=== PATIENT | female | born 1970 | race Caucasian/White ===

== ENCOUNTER 2018-10-01 14:54 | Emergency (ER) | payer BC, OTHER ==
[2018-10-01 15:30] LABS: Absolute Lymphocytes (CBC) 1.4 K/uL (0.7-4.9); Absolute Monocytes 0.5 K/uL (0.1-1.3); Absolute Neutrophil 3.9 K/uL (1.8-8.0); Basophils % 0.8 % (0-1.3); Eosinophils % 2.3 % (0-4.4); Hematocrit 32.3 % (36.0-45.0); Lymphocytes % 23.7 % (15.3-44.8); Monocytes % 7.9 % (3.3-12.3); RBC Red Blood Cell Count 4.36 M/uL (3.86-4.86)
[2018-10-01] MEDS ORDERED: ONDANSETRON 4 MG/2 ML VIAL ONE (15:37)
[2018-10-01] MEDS ORDERED: MORPHINE 4 MG/ML SYR ONE (15:37)
[2018-10-01 15:58] LABS: ALT/SGPT 26 U/L (12-78); AST/SGOT 30 U/L (15-37); Albumin 3.9 g/dL (3.4-5.0); Alkaline Phosphatase 69 U/L (45-117); BUN Blood Urea Nitrogen 7 mg/dL (7-18); Bicarbonate 27 mmol/L (21-32); Bilirubin Direct < 0.1 mg/dL (0-0.2); Bilirubin Total 0.3 mg/dL (0.2-1.0); Glucose Level 94 mg/dL (74-106); Lipase 110 U/L (73-393); Potassium 4.3 mmol/L (3.5-5.1); Protein, Total 7.4 g/dL (6.4-8.2); Sodium Level 137 mmol/L (136-145)
[2018-10-01 16:01] LABS: Urine Blood NEGATIVE (NEG); Urine Glucose NEGATIVE (NEG); Urine Protein NEGATIVE (NEG); Urine Specific Gravity 1.015 (1.005-1.030)
--- NOTE | 2018-10-01 16:32 | RAD REPORT ---
EXAM DESCRIPTION: CT - Abdomen Pelvis W Contrast - 10/01/2018 4:13 pm CLINICAL HISTORY: Abdominal pain with nausea. COMPARISON: none. TECHNIQUE: Computed axial tomography of the abdomen pelvis was obtained. 100 cc Isovue-300 was admin istered intravenously. Oral contrast was not requested which limits evaluation of bowel. All CT scans are performed using dose optimization technique as appropriate and may include automated exposure control or mA/KV adjustment according to patient size. FINDINGS: The liver, spleen, pancreas, adrenal and kidneys appear unremarkable. Small right renal cy st There is no evidence of diverticulitis. The appendix appears normal A 25 millimeter left ovarian cyst with small amount of free fluid IMPRESSION: 25 millimeter left ovarian cyst with small amount of free fluid
--- NOTE | 2018-10-01 17:09 | EDPHYS ---
Physician Documentation [facility] Name: Valarie Agrawal Age: 48 yrs Sex: Female : 1970 Arrival Date: 10/01/2018 Time: 14:56 Bed 30 Private MD: Juan Perez ED Physician Yemi Severino HPI: 10/01 15:49 This 48 yrs old Female presents to ER via Ambulatory with complaints of jr8 Abdominal Pain, Back Pain. 15:49 The patient presents with abdominal pain that is diffuse. Onset: The symptoms/episode jr8 began/occurred acutely, yesterday. The symptoms radiate to back. Associated signs and symptoms: Pertinent positives: diarrhea, nausea. The symptoms are described as sharp. Modifying factors: The symptoms are alleviated by nothing, the symptoms are aggravated by nothing. Severity of pain: At its worst the pain was moderate in the emergency department the pain is unchanged. The patient has not experienced similar symptoms in the past. The patient has not recently seen a physician. Stated that she started with back pain that went to lower abdomen. Noticed that she urinated out what she thought was a stone last night. Back pain now intermittent but abdominal pain worsening and now having diarrhea . 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 - Social history:: Smoking status: Patient/guardian denies using tobacco. - Ebola Screening: : Patient negative for fever greater than or equal to 101.5 degrees Fahrenheit, and additional compatible Ebola Virus Disease symptoms Patient denies exposure to infectious person Patient denies travel to an Ebola-affected area in the 21 days before illness onset No symptoms or risks identified at this time. ROS: 15:49 Eyes: Negative for injury, pain, redness, and discharge, ENT: Negative for injury, jr8 pain, and discharge, Neck: Negative for injury, pain, and swelling, Cardiovascular: Negative for chest pain, palpitations, and edema, Respiratory: Negative for shortness of breath, cough, wheezing, and pleuritic chest pain, Back: Negative for injury and pain, MS/Extremity: Negative for injury and deformity, Skin: Negative for injury, rash, and discoloration, Neuro: Negative for headache, weakness, numbness, tingling, and seizure. 15:49 Abdomen/GI: Positive for abdominal pain, nausea, diarrhea, Negative for vomiting, abdominal distension, anorexia, dysphagia, hematemesis, black/tarry stool, rectal pain, rectal bleeding, bowel incontinence, flatulence. Exam: 15:49 Eyes: Pupils equal round and reactive to light, extra-ocular motions intact. Lids and jr8 lashes normal. Conjunctiva and sclera are non-icteric and not injected. Cornea within normal limits. Periorbital areas with no swelling, redness, or edema. ENT: Nares patent. No nasal discharge, no septal abnormalities noted. Tympanic membranes are normal and external auditory canals are clear. Oropharynx with no redness, swelling, or masses, exudates, or evidence of obstruction, uvula midline. Mucous membranes moist. Neck: Trachea midline, no thyromegaly or masses palpated, and no cervical lymphadenopathy. Supple, full range of motion without nuchal rigidity, or vertebral point tenderness. No Meningismus. Cardiovascular: Regular rate and rhythm with a normal S1 and S2. No gallops, murmurs, or rubs. Normal PMI, no JVD. No pulse deficits. Respiratory: Lungs have equal breath sounds bilaterally, clear to auscultation and percussion. No rales, rhonchi or wheezes noted. No increased work of breathing, no retractions or nasal flaring. Back: No spinal tenderness. No costovertebral tenderness. Full range of motion. Skin: Warm, dry with normal turgor. Normal color with no rashes, no lesions, and no evidence of cellulitis. MS/ Extremity: Pulses equal, no cyanosis. Neurovascular intact. Full, normal range of motion. Neuro: Awake and alert, GCS 15, oriented to person, place, time, and situation. Cranial nerves II-XII grossly intact. Motor strength 5/5 in all extremities. Sensory grossly intact. Cerebellar exam normal. Normal gait. 15:49 Abdomen/GI: Inspection: abdomen appears normal, Bowel sounds: active, all quadrants, Palpation: soft, in all quadrants, moderate abdominal tenderness, in the umbilical area, suprapubic area, left upper quadrant, right lower quadrant and left lower quadrant, mass, is not appreciated, rebound tenderness, is not appreciated, voluntary guarding, is not appreciated, involuntary guarding, is not appreciated, no appreciated organomegaly, Indicators: McBurney's point is not tender, Vasquez's sign is negative, Rovsing's sign is negative, Liver: tenderness, is not appreciated. Vital Signs: 15:04 BP 129 / 72; Pulse 79; Resp 18; Temp 98.6; Pulse Ox 99% on R/A; Weight 72.12 kg; Height aj 5 ft. 8 in. (172.72 cm); 16:30 BP 116 / 70; Pulse 82; Resp 18; Pulse Ox 99% on R/A; aj1 17:21 BP 118 / 76; Pulse 74; Resp 17; Pulse Ox 99% ; rv 15:04 Body Mass Index 24.18 (72.12 kg, 172.72 cm) aj MDM: 15:07 Patient medically screened. [facility] 17:07 Differential diagnosis: appendicitis, bowel obstruction, Mesenteric ischemia or jr8 infarction, non-specific abd pain, Peritonitis, Pyelonephritis, Ureterolithiasis, urinary tract infection. Data reviewed: vital signs, nurses notes, lab test result(s), radiologic studies, CT scan, ultrasound, and as a result, I will discharge patient. Data interpreted: Pulse oximetry: on room air is 99 %. Interpretation: normal. Counseling: I had a detailed discussion with the patient and/or guardian regarding: the historical points, exam findings, and any diagnostic results supporting the discharge/admit diagnosis, lab results, radiology results, the need for outpatient follow up, a family practitioner, to return to the emergency department if symptoms worsen or persist or if there are any questions or concerns that arise at home. Response to treatment: the patient's symptoms have mildly improved after treatment. Special discussion: Based on the patient's Hx, exam, and Dx evaluation, there is no indication for emergent surgery or inpatient Tx. It is understood by the patient/guardian that if the Sx's persist or worsen they need to return immediately for re-evaluation. 10/01 15:13 Order name: Basic Metabolic Panel [facility] 10/01 15:13 Order name: CBC with Diff [facility] 10/01 15:13 Order name: Creatinine for Radiology; Complete Time: 15:58 [facility] 10/01 15:13 Order name: Hepatic Function; Complete Time: 16:07 jr8 10/01 15:13 Order name: Lipase; Complete Time: 16:07 jr8 10/01 15:14 Order name: Basic Metabolic Panel; Complete Time: 16:07 EDMS 10/01 15:13 Order name: IV Saline Lock; Complete Time: 15:18 jr8 10/01 15:14 Order name: CBC with Automated Diff; Complete Time: 15:37 EDMS 10/01 15:21 Order name: Urine Dipstick--Ancillary (enter results); Complete Time: 16:07 bd 10/01 15:21 Order name: Urine --Ancillary (enter results); Complete Time: 16:07 bd 10/01 15:58 Order name: CT Abd/Pelvis - W/Contrast; Complete Time: 16:41 jr8 10/01 16:42 Order name: Transvaginal Study (probe); Complete Time: 17:54 jr8 10/01 15:13 Order name: Labs collected and sent; Complete Time: 15:18 jr8 Administered Medications: 15:27 Drug: morphine 4 mg Route: IVP; Site: right antecubital; aj1 17:25 Follow up: Response: Pain is unchanged, physician notified rv 15:27 Drug: Zofran 4 mg Route: IVP; Site: right antecubital; aj1 17:24 Follow up: Response: No adverse reaction rv Disposition: 10/02 08:22 Co-signature as Attending Physician, Yemi Severino MD I agree with the assessment and mason plan of care. Disposition: 10/01/18 17:08 Discharged to Home. Impression: Unspecified ovarian cysts, Abdominal and pelvic pain. - Condition is Stable. - Discharge Instructions: Abdominal Pain, Adult, Ovarian Cyst. - Prescriptions for Ibuprofen 800 mg Oral Tablet - take 1 tablet by ORAL route every 12 hours As needed take with food; 20 tablet. Tylenol- Codeine #3 300-30 mg Oral Tablet - take 2 tablets by ORAL route every 6 hours As needed; 12 tablet. - Medication Reconciliation Form, Thank You Letter, Antibiotic Education, Prescription Opioid Use form. - Follow up: Juan Perez MD; When: 2 - 3 days; Reason: Recheck today's complaints, Continuance of care, Re-evaluation by your physician. - Problem is new. - Symptoms have improved. Signatures: Dispatcher [employer] EDKarla Armstrong RN RN aj1 Jeannette Carlisle RN RN Yemi Cruz MD MD cha Roszak, Josh, PA PA jr8 Abdirahman Galan, RN RN rv Corrections: (The following items were deleted from the chart) 10/01 17:25 17:08 10/01/2018 17:08 Discharged to Home. Impression: Unspecified ovarian cysts; rv Abdominal and pelvic pain. Condition is Stable. Forms are Medication Reconciliation Form, Thank You Letter, Antibiotic Education, Prescription Opioid Use. Follow up: Juan Perez; When: 2 - 3 days; Reason: Recheck today's complaints, Continuance of care, Re-evaluation by your physician. Problem is new. Symptoms have improved. jr8
--- NOTE | 2018-10-01 17:09 | ER ---
Nurse's Notes [facility] Name: Valarie Agrawal Age: 48 yrs Sex: Female : 1970 Arrival Date: 10/01/2018 Time: 14:56 Bed 30 Private MD: Juan Perez Diagnosis: Unspecified ovarian cysts;Abdominal and pelvic pain Presentation: 10/01 15:03 Presenting complaint: Patient states: Mid back pain bilaterally that radiated to aj abdomen. Reports passing small urinary stone last night. Transition of care: patient was not received from another setting of care. Onset of symptoms was October 01, 2018. Onset of symptoms was September 30, 2018. Risk Assessment: Do you want to hurt yourself or someone else? Patient reports no desire to harm self or others. Initial Sepsis Screen: Does the patient meet any 2 criteria? No. Patient's initial sepsis screen is negative. Does the patient have a suspected source of infection? No. Patient's initial sepsis screen is negative. Care prior to arrival: None. 15:03 Method Of Arrival: Ambulatory 15:03 Acuity: JENNIFER 3 aj Triage Assessment: 15:04 General: Appears in no apparent distress. comfortable, Behavior is calm, cooperative, aj appropriate for age. Pain: Complains of pain in back and abdomen. Neuro: Level of Consciousness is awake, alert, obeys commands, Oriented to person, place, time, situation, Appropriate for age. Respiratory: Airway is patent Respiratory effort is even, unlabored, Respiratory pattern is regular, symmetrical. GI: Reports lower abdominal pain, upper abdominal pain. : Reports pain in bilateral lower quadrant(s) in lower back. Derm: Skin is intact, is healthy with good turgor, Skin is pink, warm \\T\\ dry. normal. 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 - Social history:: Smoking status: Patient/guardian denies using tobacco. - Ebola Screening: : Patient negative for fever greater than or equal to 101.5 degrees Fahrenheit, and additional compatible Ebola Virus Disease symptoms Patient denies exposure to infectious person Patient denies travel to an Ebola-affected area in the 21 days before illness onset No symptoms or risks identified at this time. Screenin:14 Abuse screen: Denies threats or abuse. Denies injuries from another. Nutritional aj1 screening: No deficits noted. Tuberculosis screening: No symptoms or risk factors identified. 17:23 Fall Risk None identified. rv Assessment: 15:14 General: Appears in no apparent distress. uncomfortable, Behavior is calm, cooperative, aj1 appropriate for age. Pain: Complains of pain in umbilical area, right upper quadrant, left upper quadrant and left lower quadrant Pain does not radiate. Neuro: Level of Consciousness is awake, alert, obeys commands, Oriented to person, place, time, situation. Cardiovascular: Patient's skin is warm and dry. Respiratory: Airway is patent Respiratory effort is even, unlabored, Respiratory pattern is regular, symmetrical. GI: Abdomen is flat, non-distended, Bowel sounds present X 4 quads. Abd is soft X 4 quads Abdomen is tender to palpation in umbilical area and right lower quadrant. GI: Reports diarrhea. : Reports passing a kidney stone last night. EENT: No signs and/or symptoms were reported regarding the EENT system. Derm: No signs and/or symptoms reported regarding the dermatologic system. Skin is pink, warm \\T\\ dry. normal. Musculoskeletal: No signs and/or symptoms reported regarding the musculoskeletal system. Circulation, motion, and sensation intact. 16:15 Reassessment: Patient appears in no apparent distress at this time. No changes from aj1 previously documented assessment. Patient and/or family updated on plan of care and expected duration. Pain level reassessed. Patient is alert, oriented x 3, equal unlabored respirations, skin warm/dry/pink. 16:50 Reassessment: Patient transported to [facility] via wheelchair. aj1 17:23 Reassessment: patient is still complaining of pain upon discharge. DONI Shah explained rv status and plan of care after discharge. Vital Signs: 15:04 BP 129 / 72; Pulse 79; Resp 18; Temp 98.6; Pulse Ox 99% on R/A; Weight 72.12 kg; Height aj 5 ft. 8 in. (172.72 cm); 16:30 BP 116 / 70; Pulse 82; Resp 18; Pulse Ox 99% on R/A; aj1 17:21 BP 118 / 76; Pulse 74; Resp 17; Pulse Ox 99% ; rv 15:04 Body Mass Index 24.18 (72.12 kg, 172.72 cm) aj ED Course: 14:56 Patient arrived in ED. as 14:56 Juan Perez MD is Private Physician. as 15:04 Triage completed. aj 15:04 Arm band placed on left wrist. Patient placed in an exam room. aj 15:06 Pablo Watson PA is PHCP. jr8 15:06 Yemi Severino MD is Attending Physician. jr8 15:08 Karla Almeida RN is Primary Nurse. aj1 15:14 Patient has correct armband on for positive identification. aj1 15:14 No provider procedures requiring assistance completed. aj1 15:15 Inserted saline lock: 20 gauge in right antecubital area, using aseptic technique. ca1 Blood collected. 16:14 CT Abd/Pelvis - W/Contrast In Process Unspecified. EDMS 17:08 Juan Perez MD is Referral Physician. jr8 17:08 Transvaginal Study (probe) In Process Unspecified. EDMS 17:23 IV discontinued, intact, bleeding controlled, No redness/swelling at site. Pressure rv dressing applied. Administered Medications: 15:27 Drug: morphine 4 mg Route: IVP; Site: right antecubital; aj1 17:25 Follow up: Response: Pain is unchanged, physician notified rv 15:27 Drug: Zofran 4 mg Route: IVP; Site: right antecubital; aj1 17:24 Follow up: Response: No adverse reaction rv Outcome: 17:08 Discharge ordered by . jr8 17:22 Discharged to home ambulatory. rv 17:22 Condition: good 17:22 Discharge instructions given to patient, family, Instructed on discharge instructions, follow up and referral plans. medication usage, Demonstrated understanding of instructions, follow-up care, medications, Prescriptions given X 2. 17:25 Patient left the ED. rv Signatures: Dispatcher [employer] EDMS Karla Almeida, ARLYN RN aj1 Jeannette Carlisle RN RN aj Lauren Moore as Pablo Watson PA PA jr8 Abdirahman Galan RN RN rv Acob, Jennyfer, RN RN ca1
--- NOTE | 2018-10-01 17:22 | RAD REPORT ---
EXAM DESCRIPTION: US - Transvaginal Study Probe - 10/01/2018 5:08 pm CLINICAL HISTORY: Pelvic pain COMPARISON: October 01 CAT scan FINDINGS: The uterus is retroverted measuring 7 x 4 x 5cm. A fibroid is not seen. The endometrial st ripe measures 13 millimeters The ovaries are normal in size and echotexture. A 2.5 centimeter left ovarian cyst. Blood flow to lef t ovary seen Right and left adnexa unremarkable Small amount of free fluid IMPRESSION: 2.5 centimeter left ovarian cyst with a small amount of free fluid
== END 2018-10-01 17:25 | disposition home or self-care (01) ==
LOC: ER 14:54
DX: N83.209 Unspecified ovarian cyst, unspecified side (principal); Z88.0 Allergy status to penicillin
CPT/HCPCS: 36415; 74177; 76830; 80048; 80076; 81003; 81025; 83690; 85025; 96374; 96375; 99284; J2405; Q9967

== ENCOUNTER 2018-10-02 18:33 | Emergency (ER) | payer BC ==
[2018-10-02 18:53] LABS: Absolute Monocytes 0.9 K/uL (0.1-1.3); Absolute Neutrophil 3.7 K/uL (1.8-8.0); Basophils % 0.9 % (0-1.3); Eosinophils % 1.9 % (0-4.4); Hematocrit 32.3 % (36.0-45.0); Lymphocytes % 45.1 % (15.3-44.8); Monocytes % 10.3 % (3.3-12.3); RBC Red Blood Cell Count 4.34 M/uL (3.86-4.86)
[2018-10-02 19:17] LABS: ALT/SGPT 22 U/L (12-78); AST/SGOT 20 U/L (15-37); Alkaline Phosphatase 69 U/L (45-117); BUN Blood Urea Nitrogen 8 mg/dL (7-18); Bicarbonate 21 mmol/L (21-32); Bilirubin Direct < 0.1 mg/dL (0-0.2); Bilirubin Total 0.6 mg/dL (0.2-1.0); Glucose Level 175 mg/dL (74-106); Lipase 87 U/L (73-393); Potassium 3.1 mmol/L (3.5-5.1); Protein, Total 7.6 g/dL (6.4-8.2); Sodium Level 136 mmol/L (136-145)
[2018-10-02] MEDS ORDERED: MORPHINE 4 MG/ML SYR ONE (19:24)
[2018-10-02] MEDS ORDERED: NA CHLORIDE 0.9% 1,000 ML ONE (19:24)
[2018-10-02] MEDS ORDERED: ONDANSETRON 4 MG/2 ML VIAL ONE (19:24)
[2018-10-02] MEDS ORDERED: MEPERIDINE HCL 25 MG/0.5 ML ONE ×2 (20:05→20:24)
[2018-10-02] MEDS ORDERED: KETOROLAC 30 MG/ML INJ ONE (22:42)
--- NOTE | 2018-10-02 22:48 | ER ---
Nurse's Notes [facility] Name: Valarie Agrawal Age: 48 yrs Sex: Female : 1970 Arrival Date: 10/02/2018 Time: 18:34 Bed 8 Private MD: Diagnosis: Other ovarian cysts;Generalized abdominal pain Presentation: 10/02 18:35 Presenting complaint: Patient states: generalized abd pain that began 3-4 days ago . Pt ss reports she was discharged from ED yesterday with same pain, but it became worse today. Transition of care: patient was not received from another setting of care. Onset of symptoms was September 29, 2018. Risk Assessment: Do you want to hurt yourself or someone else? Patient reports no desire to harm self or others. Initial Sepsis Screen: Does the patient meet any 2 criteria? RR > 20 per min. Does the patient have a suspected source of infection? No. Patient's initial sepsis screen is negative. Care prior to arrival: None. 18:35 Method Of Arrival: EMS: [facility] 18:35 Acuity: JENNIFER 2 ss Triage Assessment: 18:30 General: Appears distressed, uncomfortable, well developed, Behavior is cooperative, sv restless. Pain: Complains of pain in abdomen Pain currently is 10 out of 10 on a pain scale. Quality of pain is described as sharp, Pain began 3-4 days ago but got worse today. Is continuous, Noted to be grimacing, guarding, moaning, restless, Also complains of diaphoresis. Neuro: Level of Consciousness is awake, alert, obeys commands, Oriented to person, place, time, situation, Moves all extremities. Full function Speech is normal. Respiratory: Airway is patent Respiratory effort is even, unlabored, Respiratory pattern is regular, symmetrical. GI: Abdomen is flat, Reports lower abdominal pain, upper abdominal pain, nausea. Derm: Skin is diaphoretic, Skin is pale. 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 - Social history:: Smoking status: Patient/guardian denies using tobacco. - Ebola Screening: : Patient denies exposure to infectious person Patient denies travel to an Ebola-affected area in the 21 days before illness onset. Screenin:35 Abuse screen: Denies threats or abuse. Denies injuries from another. Nutritional sv screening: No deficits noted. Tuberculosis screening: No symptoms or risk factors identified. Fall Risk None identified. Assessment: 18:35 Reassessment: Dr Macias informed of reason for visit and pt status. sv 18:51 Reassessment: Called into the room by the family. Family appears angry and upset that sv we sent her home yesterday and told her nothing was wrong and she is in more pain today. Family demanding to have someone come see her. Informed Dr Macias of request. 19:35 Reassessment: finished oral contrast. tl1 19:35 General: Appears in no apparent distress. uncomfortable, Behavior is calm, cooperative, tl1 appropriate for age. Pain: Complains of pain in right lower quadrant and left lower quadrant Pain currently is 8 out of 10 on a pain scale. Quality of pain is described as pressure, sharp, stabbing, squeezing, Pain began 2-3 days ago. Neuro: Level of Consciousness is awake, alert, obeys commands, Oriented to person, place, time, situation. Cardiovascular: Denies chest pain. Respiratory: Airway is patent Trachea midline Respiratory effort is even, unlabored, Respiratory pattern is regular, Breath sounds are clear bilaterally. GI: Abdomen is non-distended, Bowel sounds present X 4 quads. Abdomen is tender to palpation in right lower quadrant and left lower quadrant. : No signs and/or symptoms were reported regarding the genitourinary system. EENT: No signs and/or symptoms were reported regarding the EENT system. Derm: No signs and/or symptoms reported regarding the dermatologic system. Vital Signs: 18:39 BP 142 / 104; Pulse 57; Resp 18; Temp 97.6(TE); Pulse Ox 100% on R/A; Weight 72.57 kg; ss Height 5 ft. 8 in. (172.72 cm); Pain 10/10; 19:35 BP 122 / 76; Pulse 71; Resp 16; Pulse Ox 100% on R/A; Pain 8/10; tl1 20:43 BP 106 / 66; Pulse 76; Resp 17; Pulse Ox 100% ; Pain 7/10; tl1 21:28 BP 101 / 61; Pulse 58; Resp 17; Pulse Ox 100% ; Pain 6/10; tl1 22:16 Pulse 58; Resp 18; Pulse Ox 100% on R/A; tl2 22:20 BP 96 / 46; Pulse 67; Resp 17; Pulse Ox 100% on R/A; Pain 6/10; tl1 22:42 BP 105 / 69; Pulse 64; Resp 18; Pulse Ox 100% on R/A; tl2 23:06 BP 110 / 69; Pulse 67; Resp 16; Temp 98; Pulse Ox 100% ; Pain 4/10; tl1 18:39 Body Mass Index 24.33 (72.57 kg, 172.72 cm) ss ED Course: 18:30 Initial lab(s) drawn, by me, sent to lab. Maintain EMS IV. Dressing intact. Good blood sv return noted. Site clean \T\ dry. Gauge \T\ site: 18G R AC. 18:34 Patient arrived in ED. sv 18:34 Buffy Diamond RN is Primary Nurse. sv 18:35 Patient has correct armband on for positive identification. Placed in gown. Bed in low sv position. Call light in reach. Side rails up X2. Pulse ox on. NIBP on. Door closed. Head of bed elevated. 18:38 Triage completed. ss 18:39 Arm band placed on right wrist. ss 18:51 Renetta Umanzor FNP-C is PHCP. kb 18:51 Primitivo Macias MD is Attending Physician. kb 19:05 Report given to Alea STODDARD and Karyn STODDARD. sv 19:18 Primary Nurse role handed off by Buffy Diamond RN sv 19:19 Karyn Dorsey RN is Primary Nurse. tl1 21:[address] via wheelchair. vm2 21:56 CT Abd/Pelvis - W/Contrast In Process Unspecified. EDMS 23:09 No provider procedures requiring assistance completed. IV discontinued, intact, tl1 bleeding controlled, No redness/swelling at site. Pressure dressing applied. Administered Medications: 19:20 Drug: NS 0.9% 1000 ml Route: IV; Rate: 1000 ml; Site: right antecubital; tl1 20:20 Follow up: IV Status: Completed infusion tl1 19:20 Drug: morphine 4 mg Route: IVP; Infused Over: 2 mins; Site: right antecubital; tl1 19:45 Follow up: Response: No adverse reaction; No change in condition; Pain is unchanged, tl1 physician notified 22:23 Follow up: Response: No adverse reaction; Pain is unchanged, physician notified tl1 19:21 Drug: Zofran 4 mg Route: IVP; Infused Over: 2 mins; Site: right antecubital; tl1 20:00 Follow up: Response: No adverse reaction; Nausea is decreased tl1 19:54 Drug: Demerol 25 mg Route: IVP; Infused Over: 2 mins; Site: right antecubital; tl1 20:10 Follow up: Response: No adverse reaction; No change in condition; Pain is unchanged, tl1 physician notified 20:15 Drug: Demerol 25 mg Route: IVP; Infused Over: 2 mins; Site: right antecubital; tl1 20:45 Follow up: Response: No adverse reaction; Marked relief of symptoms; Pain is decreased tl1 22:43 Drug: TORadol 30 mg Route: IVP; Site: right antecubital; tl2 23:11 Follow up: Response: No adverse reaction; Marked relief of symptoms; Pain is decreased tl1 22:47 Drug: [place] 10 mg-325 mg 1 tabs Route: PO; tl2 23:10 Follow up: Response: No adverse reaction; No change in condition tl1 Outcome: 22:47 Discharge ordered by . kb 23:09 Discharged to home ambulatory, with family. tl1 23:09 Condition: good 23:09 Discharge instructions given to patient, family, Instructed on discharge instructions, follow up and referral plans. medication usage, Demonstrated understanding of instructions, follow-up care, medications, Prescriptions given X 2. 23:11 Patient left the ED. tl1 Signatures: Dispatcher [employer] EDMS Renetta Umanzor, MARY CHANG-Buffy Navas RN RN sv Smirch, Shelby, RN RN Karyn Dorsey RN RN tl1 Alea Mederos RN RN tl2 [facility]
--- NOTE | 2018-10-02 22:48 | EDPHYS ---
Physician Documentation [facility] Name: Valarie Agrawal Age: 48 yrs Sex: Female : 1970 Arrival Date: 10/02/2018 Time: 18:34 Bed 8 Private MD: ED Physician Primitivo Macias HPI: 10/02 20:11 This 48 yrs old Female presents to ER via EMS with complaints of Abdominal kb Pain. 20:11 The patient presents with abdominal pain that is diffuse. Onset: The symptoms/episode kb began/occurred 3 day(s) ago. The symptoms do not radiate. Associated signs and symptoms: Pertinent positives: nausea, vomiting, and diarrhea, Pertinent negatives: anorexia, blood in stools, chest pain, constipation, dysuria, fever, headache, hematuria, palpitations, shortness of breath, vaginal discharge, vomiting blood. The symptoms are described as constant. Modifying factors: The symptoms are alleviated by nothing, the symptoms are aggravated by nothing. Severity of pain: At its worst the pain was severe in the emergency department the pain is unchanged. The patient has not experienced similar symptoms in the past. The patient has been recently seen at the [facility] Emergency Department, yesterday, for similar complaints labs were performed, an ultrasound was performed, CT scan was performed. Pt reports flank pain that started on Sunday, passed a kidney stone yesterday and has had diffuse abd pain since then. States pain has been constant. Had diarrhea yesterday, nausea this morning, and vomited once on the way here. Had labs, CT and US yesterday. Ovarian cyst was found at that time. . 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 - Social history:: Smoking status: Patient/guardian denies using tobacco. - Ebola Screening: : Patient denies exposure to infectious person Patient denies travel to an Ebola-affected area in the 21 days before illness onset. ROS: 20:10 Constitutional: Negative for fever, chills, and weight loss, ENT: Negative for injury, kb pain, and discharge, Neck: Negative for injury, pain, and swelling, Cardiovascular: Negative for chest pain, palpitations, and edema, Respiratory: Negative for shortness of breath, cough, wheezing, and pleuritic chest pain, MS/Extremity: Negative for injury and deformity, Skin: Negative for injury, rash, and discoloration, Neuro: Negative for headache, weakness, numbness, tingling, and seizure. 20:10 Abdomen/GI: Positive for abdominal pain, nausea, vomiting, and diarrhea. 20:10 Back: Positive for flank pain, bilaterally. Exam: 20:08 Constitutional: This is a well developed, well nourished patient who is awake, alert, kb and in no acute distress. Head/Face: Normocephalic, atraumatic. Neck: Trachea midline, no thyromegaly or masses palpated, and no cervical lymphadenopathy. Supple, full range of motion without nuchal rigidity, or vertebral point tenderness. No Meningismus. Chest/axilla: Normal chest wall appearance and motion. Nontender with no deformity. No lesions are appreciated. Cardiovascular: Regular rate and rhythm with a normal S1 and S2. No gallops, murmurs, or rubs. Normal PMI, no JVD. No pulse deficits. Respiratory: Lungs have equal breath sounds bilaterally, clear to auscultation and percussion. No rales, rhonchi or wheezes noted. No increased work of breathing, no retractions or nasal flaring. Skin: Warm, dry with normal turgor. Normal color with no rashes, no lesions, and no evidence of cellulitis. MS/ Extremity: Pulses equal, no cyanosis. Neurovascular intact. Full, normal range of motion. Neuro: Awake and alert, GCS 15, oriented to person, place, time, and situation. Cranial nerves II-XII grossly intact. Motor strength 5/5 in all extremities. Sensory grossly intact. Cerebellar exam normal. Normal gait. 20:08 Abdomen/GI: Inspection: abdomen appears normal, Bowel sounds: normal, pt would not let me palpate abd. 20:08 Back: CVA tenderness, that is moderate, is noted bilaterally. Vital Signs: 18:39 BP 142 / 104; Pulse 57; Resp 18; Temp 97.6(TE); Pulse Ox 100% on R/A; Weight 72.57 kg; ss Height 5 ft. 8 in. (172.72 cm); Pain 10/10; 19:35 BP 122 / 76; Pulse 71; Resp 16; Pulse Ox 100% on R/A; Pain 8/10; tl1 20:43 BP 106 / 66; Pulse 76; Resp 17; Pulse Ox 100% ; Pain 7/10; tl1 21:28 BP 101 / 61; Pulse 58; Resp 17; Pulse Ox 100% ; Pain 6/10; tl1 22:16 Pulse 58; Resp 18; Pulse Ox 100% on R/A; tl2 22:20 BP 96 / 46; Pulse 67; Resp 17; Pulse Ox 100% on R/A; Pain 6/10; tl1 22:42 BP 105 / 69; Pulse 64; Resp 18; Pulse Ox 100% on R/A; tl2 23:06 BP 110 / 69; Pulse 67; Resp 16; Temp 98; Pulse Ox 100% ; Pain 4/10; tl1 18:39 Body Mass Index 24.33 (72.57 kg, 172.72 cm) ss MDM: 18:52 Patient medically screened. kb 20:08 Data reviewed: vital signs, nurses notes. Data interpreted: Pulse oximetry: on room air kb is 100 %. Interpretation: normal. 22:43 Counseling: I had a detailed discussion with the patient and/or guardian regarding: the kb historical points, exam findings, and any diagnostic results supporting the discharge/admit diagnosis, lab results, radiology results, the need for outpatient follow up, a family practitioner, a baby formula mixer, an OB/Gyne specialist, to return to the emergency department if symptoms worsen or persist or if there are any questions or concerns that arise at home. ED course: Pt educated on diagnostic findings. Educated that there is no infectious or surgical finding that requires admission at this time. Verbal understanding received. . 10/02 18:35 Order name: Basic Metabolic Panel; Complete Time: 19:36 sv 10/02 18:35 Order name: CBC with Diff; Complete Time: 19:03 sv 10/02 18:35 Order name: Creatinine for Radiology; Complete Time: 19:11 sv 10/02 18:35 Order name: Hepatic Function; Complete Time: 19:36 sv 10/02 18:35 Order name: Lipase; Complete Time: 19:36 sv 10/02 19:04 Order name: CT Abd/Pelvis - W/Contrast kb 10/02 18:35 Order name: IV Saline Lock; Complete Time: 18:35 sv 10/02 18:35 Order name: Labs collected and sent; Complete Time: 18:35 sv Administered Medications: 19:20 Drug: NS 0.9% 1000 ml Route: IV; Rate: 1000 ml; Site: right antecubital; tl1 20:20 Follow up: IV Status: Completed infusion tl1 19:20 Drug: morphine 4 mg Route: IVP; Infused Over: 2 mins; Site: right antecubital; tl1 19:45 Follow up: Response: No adverse reaction; No change in condition; Pain is unchanged, tl1 physician notified 22:23 Follow up: Response: No adverse reaction; Pain is unchanged, physician notified tl1 19:21 Drug: Zofran 4 mg Route: IVP; Infused Over: 2 mins; Site: right antecubital; tl1 20:00 Follow up: Response: No adverse reaction; Nausea is decreased tl1 19:54 Drug: Demerol 25 mg Route: IVP; Infused Over: 2 mins; Site: right antecubital; tl1 20:10 Follow up: Response: No adverse reaction; No change in condition; Pain is unchanged, tl1 physician notified 20:15 Drug: Demerol 25 mg Route: IVP; Infused Over: 2 mins; Site: right antecubital; tl1 20:45 Follow up: Response: No adverse reaction; Marked relief of symptoms; Pain is decreased tl1 22:43 Drug: TORadol 30 mg Route: IVP; Site: right antecubital; tl2 23:11 Follow up: Response: No adverse reaction; Marked relief of symptoms; Pain is decreased tl1 22:47 Drug: [place] 10 mg-325 mg 1 tabs Route: PO; tl2 23:10 Follow up: Response: No adverse reaction; No change in condition tl1 Disposition: 10/03 06:56 Co-signature as Attending Physician, Primitivo Macias MD I agree with the assessment and kdr plan of care. Disposition: 10/02/18 22:47 Discharged to Home. Impression: Other ovarian cysts, Generalized abdominal pain. - Condition is Stable. - Discharge Instructions: Abdominal Pain, Adult, [id number], Ovarian Cyst, [id number]. - Prescriptions for Zofran 4 mg Oral Tablet - take 1 tablet by ORAL route every 6 hours As needed; 20 tablet. Tramadol 50 mg Oral Tablet - take 1 tablet by ORAL route every 8 hours as needed; 12 tablet. - Medication Reconciliation Form, Thank You Letter, Antibiotic Education, Prescription Opioid Use form. - Follow up: Emergency Department; When: As needed; Reason: Worsening of condition. Follow up: Private Physician; When: 2 - 3 days; Reason: Recheck today's complaints, Continuance of care, Re-evaluation by your physician. Signatures: Dispatcher [employer] [facility] Renetta Umanzor, MOLASSES COLORING OPERATOR-C MOLASSES COLORING OPERATOR-Buffy Navas, RN RN Primitivo Macias MD MD [facility] Nadine Moe RN RN ss Karyn Dorsey RN RN tl1 Alea Mederos RN RN tl2 Corrections: (The following items were deleted from the chart) 10/02 19:12 18:40 Abdomen Pelvis W Con+CT.RAD.BRZ ordered. [facility] 23:11 22:47 10/02/2018 22:47 Discharged to Home. Impression: Other ovarian cysts; Generalized tl1 abdominal pain. Condition is Stable. Forms are Medication Reconciliation Form, Thank You Letter, Antibiotic Education, Prescription Opioid Use. Follow up: Emergency Department; When: As needed; Reason: Worsening of condition. Follow up: Private Physician; When: 2 - 3 days; Reason: Recheck today's complaints, Continuance of care, Re-evaluation by your physician. kb
[2018-10-02] MEDS ORDERED: HYDROCODONE/APAP 10/325 TAB ONE (22:50)
--- NOTE | 2018-10-03 12:45 | RAD REPORT ---
EXAM DESCRIPTION: CT - Abdomen Pelvis W Contrast - 10/02/2018 9:56 pm CLINICAL HISTORY: 48 years Female. ABD Pain COMPARISON: October 01, 2018 TECHNIQUE: Images were obtained in axial, sagittal, and coronal planes. Intravenous and oral contrast was administered. This exam was performed according to our departmental dose-optimization program which includes use of Automated Exposure Control, adjustment of the mA and/or kV according to patient size and/or use of iterative reconstruction technique. FINDINGS: No abnormality involving the liver, spleen, pancreas, gallbladder, or adrenal glands bilaterally. Surgical clips epigastric region. Retroverted uterus. Suspected fluid within the endometrial cavity. 2.4 cm cyst left ovary unchanged when correlated with the prior study. The appendix within normal limits. No bowel obstruction, perforation,or inflammation. No abnormality abdominal aortal or portal vein. No adenopathy or abnormal fluid collections seen. No abnormality lower lungs bilaterally. Left breast implant. No acute osseous abnormality. No obstructing renal calcifications bilaterally. No hydronephrosis bilaterally. Unremarkable bladder. IMPRESSION: No acute intra-abdominal abnormality. Findings unchanged when correlated with the prior study. Electronically signed by: Gabbi Valentine MD 10/02/2018 10:13 PM CDT Due to temporary technical issues with the PACS/Fluency reporting system, reports are being signed by the in house radiologist as a courtesy to ensure prompt reporting. The interpreting radiologist is fully responsible for the content of the report. YE
== END 2018-10-02 23:11 | disposition home or self-care (01) ==
LOC: ER 18:33
DX: N83.299 Other ovarian cyst, unspecified side (principal); Z88.0 Allergy status to penicillin
CPT/HCPCS: 36415; 74177; 80048; 80076; 83690; 85025; 96361; 96374; 96375; 99284; J2175; J2405; J7030; Q9967